=== PATIENT | male | born 1985 | race Caucasian/White ===

== ENCOUNTER 2017-07-20 09:57 | Emergency (ER) | payer OTHER ==
[~2017-07-20] VITALS: Wt 90.7 kg
[~2017-07-20 09:57] MED LIST: ALBUTEROL0.09 MG/A2 IH; COLACE100 MG PO; CORTISPORIN 1%-10 M1 OT; CYCLOBENZAPRINE10 MG PO; CYCLOBENZAPRINE5 M3 PO; Cleocin150 MG PO; HYDROCODONE BIT1 T11 PO; IBU800 MG PO; MEDROL DOSEPAK4 MG PO; MOTRIN800 MG PO; NAPROSYN500 MG PO; NORCO 325 MG-51 TAB PO; PARAFON FORTE500 MG PO; PREDNICOT20 MG PO; PREDNISONE50 MG PO; PROCTOSOL-HC2.51 TP; PROMETHAZINE25 MG RC; TRIMOX500 MG PO; VENTOLIN 02.5 MG/3 M INH; VICODIN 5/500 505 MG PO; ZITHROMAX Z PA250 MG PO
[2017-07-20 10:02] VITALS: BP 155/87
[2017-07-20] MEDS ORDERED: MEDROL DOSEPAK4 MG PO (10:47)
[2017-07-20] MEDS ORDERED: NORCO 5-325 TA1 EACH PO (10:50)
== END 2017-07-20 11:24 | disposition home or self-care (01) ==
LOC: ED 09:57
DX: M54.16 Radiculopathy, lumbar region (principal); M53.3 Sacrococcygeal disorders, not elsewhere classified; Z88.0 Allergy status to penicillin

== ENCOUNTER 2017-09-27 21:02 | Emergency (ER) | payer OTHER ==
[~2017-09-27] VITALS: Ht 182.8 cm; Wt 89.4 kg
[~2017-09-27 21:02] MED LIST changes: +NORCO 5-325 TA1 EACH PO
[2017-09-27 21:03] VITALS: BP 135/86
[2017-09-27] MEDS ORDERED: NAPROSYN500 MG PO (22:40)
== END 2017-09-27 23:28 | disposition home or self-care (01) ==
LOC: ED 21:02
DX: S90.111A Contusion of right great toe without damage to nail, initial encounter (principal); W18.40XA Slipping, tripping and stumbling without falling, unspecified, initial encounter; Y93.89 Activity, other specified; Y92.89 Other specified places as the place of occurrence of the external cause; Y99.8 Other external cause status; Z88.0 Allergy status to penicillin

== ENCOUNTER 2017-10-10 19:12 | Emergency (ER) | payer OTHER ==
[~2017-10-10] VITALS: Ht 182.8 cm; Wt 93.0 kg
[2017-10-10 19:21] VITALS: BP 121/71
[2017-10-10 20:15] LABS: BASO % 0.3 % (0.0-1.0); EOS # 0.1 10*3/uL (0.0-0.4); EOS % 1.2 % (1.0-4.0); HEMATOCRIT 40.8 % (42.0-52.0); HEMOGLOBIN 13.9 g/dl (14.0-18.0); LYMPH # 2.3 10*3/uL (1.3-4.4); LYMPH % 22.4 % (27.0-41.0); MEAN CELL VOLUME 91.7 fl (80.0-94.0); MEAN CORPUSCULAR HGB 31.2 pg (27.0-31.0); MEAN CORPUSCULAR HGB CONC 34.1 g/dl (33.0-37.0); MEAN PLATELET VOLUME 10.3 fl (9.6-12.3); MONO # 0.8 10*3/uL (0.1-1.0); MONO % 7.9 % (3.0-9.0); PLATELET COUNT AUTOMATED 311 10*3/uL (130-400); RED BLOOD COUNT 4.45 10*6/uL (4.50-5.90); RED CELL DISTRI WIDTH 12.7 % (0-14.5); WHITE BLOOD COUNT 10.3 10*3/uL (4.8-10.8)
[2017-10-10 20:27] LABS: URIC ACID 4.9 mg/dL (3.5-7.2)
[2017-10-10] MEDS ORDERED: ANAPROX DS550 MG PO (21:09)
== END 2017-10-10 21:18 | disposition home or self-care (01) ==
LOC: ED 19:12
PROVIDERS: Emergency Medicine Emergency Medical Services
DX: M72.2 Plantar fascial fibromatosis (principal); F17.200 Nicotine dependence, unspecified, uncomplicated; Z90.49 Acquired absence of other specified parts of digestive tract; Z87.01 Personal history of pneumonia (recurrent); Z88.0 Allergy status to penicillin

== ENCOUNTER → 2018-03-19 | Outpatient (CLI) | payer OTHER ==
[~2018-03-19] MED LIST changes: +ANAPROX DS550 MG PO
[2018-03-19 12:38] LABS: ALBUMIN 3.6 gm/dl (3.1-4.5); BUN 8 mg/dl (7-24); CHLORIDE 108 mmol/L (98-107); CHOLESTEROL 147 mg/dL (<200); CREATININE 0.76 mg/dL (0.70-1.30); POTASSIUM 3.8 mmol/L (3.5-5.1); SGOT/AST 13 IU/L (3-35); SGPT/ALT 21 U/L (12-78); SODIUM 139 mmol/L (136-145); TRIGLYCERIDES 67 mg/dl (<150); VLDL CHOLESTEROL 13 mg/dL (6-40)
[2018-03-19 12:46] LABS: ALKALINE PHOSPHATASE 96 U/L (45-117); HDL CHOLESTEROL 47 mg/dl (40-60); LDL CHOLESTEROL 87 mg/dL (9-159); TOTAL PROTEIN 6.8 gm/dL (6.4-8.2)
== END | disposition home or self-care (01) ==
LOC: LAB 11:52
DX: R53.82 Chronic fatigue, unspecified (principal); M54.5 Low back pain; H91.93 Unspecified hearing loss, bilateral; F17.200 Nicotine dependence, unspecified, uncomplicated; R79.89 Other specified abnormal findings of blood chemistry

== ENCOUNTER 2018-05-10 22:04 | Emergency (ER) | payer OTHER ==
[~2018-05-10] VITALS: Ht 185.4 cm; Wt 93.0 kg
[2018-05-10 22:05] VITALS: BP 128/80
[2018-05-10] MEDS ORDERED: MEDROL DOSEPAK4 MG PO (22:54)
== END 2018-05-10 23:10 ==
LOC: ED 22:04
DX: L25.9 Unspecified contact dermatitis, unspecified cause (principal); Z88.0 Allergy status to penicillin; Z90.49 Acquired absence of other specified parts of digestive tract

== ENCOUNTER 2018-08-09 17:38 | Emergency (ER) | payer OTHER ==
[~2018-08-09] VITALS: Ht 185.4 cm; Wt 101.6 kg
[2018-08-09 17:39] VITALS: BP 119/79
[2018-08-09 17:55] LABS: BASO % 0.3 % (0.0-1.0); EOS # 0.1 10*3/uL (0.0-0.4); EOS % 1.2 % (1.0-4.0); HEMATOCRIT 40.5 % (42.0-52.0); HEMOGLOBIN 13.9 g/dl (14.0-18.0); LYMPH # 1.5 10*3/uL (1.3-4.4); LYMPH % 20.4 % (27.0-41.0); MEAN CELL VOLUME 90.6 fl (80.0-94.0); MEAN CORPUSCULAR HGB 31.1 pg (27.0-31.0); MEAN CORPUSCULAR HGB CONC 34.3 g/dl (33.0-37.0); MEAN PLATELET VOLUME 10.7 fl (9.6-12.3); MONO # 0.5 10*3/uL (0.1-1.0); MONO % 6.6 % (3.0-9.0); NEUT # 5.2 10*3/uL (2.3-7.9); NEUT % 71.2 % (47.0-73.0); PLATELET COUNT AUTOMATED 309 10*3/uL (130-400); RED BLOOD COUNT 4.47 10*6/uL (4.50-5.90); RED CELL DISTRI WIDTH 12.7 % (0-14.5); WHITE BLOOD COUNT 7.3 10*3/uL (4.8-10.8)
[2018-08-09 18:12] LABS: ALBUMIN 3.8 gm/dl (3.1-4.5); ALKALINE PHOSPHATASE 79 U/L (45-117); BUN 9 mg/dl (7-24); CHLORIDE 108 mmol/L (98-107); CREATININE 0.77 mg/dL (0.70-1.30); LIPASE 120 U/L (73-393); POTASSIUM 4.2 mmol/L (3.5-5.1); SGOT/AST 10 IU/L (3-35); SGPT/ALT 18 U/L (12-78); SODIUM 138 mmol/L (136-145); TOTAL PROTEIN 7.1 gm/dL (6.4-8.2)
[2018-08-09 18:47] LABS: BILIRUBIN NEGATIVE (NEGATIVE); BLOOD NEGATIVE (NEGATIVE); CLARITY CLEAR (CLEAR); COLOR YELLOW (YELLOW); GLUCOSE NEGATIVE (NEGATIVE); KETONE NEGATIVE (NEGATIVE); LEUKO ESTERASE NEGATIVE (NEGATIVE); NITRITE NEGATIVE (NEGATIVE); PH 5.5 (5.0-9.0); SPECIFIC GRAVITY 1.025 (1.005-1.030); UROBILINOGEN 0.2 E.U./dl (0.2-1.0)
[2018-08-09 18:54] LABS: MUCOUS TRACE
[2018-08-09] MEDS ORDERED: NAPROSYN500 MG PO (19:10)
[2018-08-09] MEDS ORDERED: ZOFRAN4 MG PO (19:10)
== END 2018-08-09 20:07 ==
LOC: ED 17:38
PROVIDERS: Nurse Practitioner Family
DX: R10.9 Unspecified abdominal pain (principal); J45.909 Unspecified asthma, uncomplicated; Z88.0 Allergy status to penicillin; Z90.49 Acquired absence of other specified parts of digestive tract

== ENCOUNTER 2018-12-01 19:06 | Emergency (ER) | payer OTHER ==
[~2018-12-01] VITALS: Ht 185.4 cm; Wt 95.3 kg
[~2018-12-01 19:06] MED LIST changes: +ZOFRAN4 MG PO
[2018-12-01 19:11] VITALS: BP 133/82
[2018-12-01] MEDS ORDERED: IBU800 MG PO (19:58)
[2018-12-01] MEDS ORDERED: PREDNISONE20 M1 PO (19:58)
[2018-12-01] MEDS ORDERED: FLONASE ALLERG9.9 ML NAS (19:58)
== END 2018-12-01 20:06 | disposition home or self-care (01) ==
LOC: ED 19:06
DX: J06.9 Acute upper respiratory infection, unspecified (principal); M77.11 Lateral epicondylitis, right elbow; J45.909 Unspecified asthma, uncomplicated; Z87.891 Personal history of nicotine dependence; Z88.0 Allergy status to penicillin

== ENCOUNTER 2019-01-31 10:47 | Emergency (ER) | payer OTHER ==
[~2019-01-31] VITALS: Ht 185.4 cm; Wt 99.8 kg
[~2019-01-31 10:47] MED LIST changes: +FLONASE ALLERG9.9 ML NAS; +PREDNISONE20 M1 PO
[2019-01-31 10:49] VITALS: BP 138/89
[2019-01-31] MEDS ORDERED: Tobrex Ophth S2.5 ML OPH (11:44)
[2019-01-31] MEDS ORDERED: ACULAR 0.5%3 ML OPH (11:44)
[2019-05-10] MEDS ORDERED: AMOXICILLIN500 M2 PO (08:23)
[2019-05-10] MEDS ORDERED: Motrin,Rufen800 MG PO ×2 (08:23→08:25)
== END 2019-01-31 12:05 | disposition home or self-care (01) ==
LOC: ED 10:47
DX: H10.9 Unspecified conjunctivitis (principal); J45.909 Unspecified asthma, uncomplicated; F17.200 Nicotine dependence, unspecified, uncomplicated; Z88.0 Allergy status to penicillin; Z79.899 Other long term (current) drug therapy; Z90.49 Acquired absence of other specified parts of digestive tract

== ENCOUNTER 2020-05-28 04:25 | Emergency (ER) | payer BC ==
[~2020-05-28] VITALS: Ht 182.8 cm; Wt 95.3 kg
[~2020-05-28 04:25] MED LIST changes: +ACULAR 0.5%3 ML OPH; +AMOXICILLIN500 M2 PO; +Motrin,Rufen800 MG PO; +Tobrex Ophth S2.5 ML OPH
[2020-05-28 04:38] VITALS: BP 130/89
== END 2020-05-28 06:13 | disposition home or self-care (01) ==
LOC: ED 04:25
DX: S22.32XA Fracture of one rib, left side, initial encounter for closed fracture (principal); Z88.0 Allergy status to penicillin; W13.1XXA Fall from, out of or through bridge, initial encounter; Y93.89 Activity, other specified; Y92.89 Other specified places as the place of occurrence of the external cause; Y99.8 Other external cause status

== ENCOUNTER → 2020-11-07 | Outpatient (CLI) | payer BC | END | disposition home or self-care (01) | LOC: COVID19 13:42 | PROVIDERS: ATTEND Nurse Practitioner Primary Care | DX: U07.1 COVID-19 (principal) ==

== ENCOUNTER 2020-12-30 17:15 | Emergency (ER) | payer BC ==
[~2020-12-30] VITALS: Ht 182.8 cm; Wt 106.6 kg
[2020-12-30 17:33] VITALS: BP 131/82
[2020-12-30] MEDS ORDERED: NORVASC10 MG PO (17:46)
[2020-12-30] MEDS ORDERED: VITAMIN C500 M8 PO (17:47)
[2020-12-30] MEDS ORDERED: Motrin,Rufen800 MG PO (18:46)
== END 2020-12-30 19:03 | disposition home or self-care (01) ==
LOC: ED 17:15
DX: S93.402A Sprain of unspecified ligament of left ankle, initial encounter (principal); Z88.0 Allergy status to penicillin; Z79.899 Other long term (current) drug therapy; Z90.49 Acquired absence of other specified parts of digestive tract; X50.1XXA Overexertion from prolonged static or awkward postures, initial encounter; Y93.89 Activity, other specified; Y92.098 Other place in other non-institutional residence as the place of occurrence of the external cause; Y99.8 Other external cause status

== ENCOUNTER → 2021-12-23 | Outpatient (CLI) | payer BC ==
[~2021-12-23] MED LIST changes: +NORVASC10 MG PO; +VITAMIN C500 M8 PO
== END ==
LOC: RAD 11:29
PROVIDERS: ATTEND Nurse Practitioner Primary Care
DX: R07.89 Other chest pain (principal); R06.02 Shortness of breath

== ENCOUNTER 2022-02-27 13:23 | Emergency (ER) | payer BC ==
[2022-02-27 13:31] VITALS: BP 149/58
[2022-02-27] MEDS ORDERED: CYCLOBENZAPRINE5 M3 PO (15:18)
[2022-02-27] MEDS ORDERED: MEDROL DOSEPAK4 MG PO (15:18)
[2022-02-27] MEDS ORDERED: Motrin,Rufen800 MG PO (15:18)
== END 2022-02-27 16:04 | disposition home or self-care (01) ==
LOC: ED 13:23
DX: M54.50 Low back pain, unspecified (principal); Z88.0 Allergy status to penicillin; Z79.899 Other long term (current) drug therapy; Z90.49 Acquired absence of other specified parts of digestive tract; Z90.89 Acquired absence of other organs; Z98.890 Other specified postprocedural states

== ENCOUNTER 2022-12-15 23:52 | Emergency (ER) | payer BC ==
[~2022-12-15] VITALS: Ht 182.8 cm
[2022-12-16 00:07] VITALS: BP 139/87
[2022-12-16] MEDS ORDERED: TAMIFLU 75MG CA75 MG PO (02:14)
[2022-12-16] MEDS ORDERED: ZITHROMAX250 MG PO (02:14)
== END 2022-12-16 02:18 | disposition home or self-care (01) ==
LOC: ED 23:52
DX: J10.1 Influenza due to other identified influenza virus with other respiratory manifestations (principal); Z20.822 Contact with and (suspected) exposure to COVID-19; Z88.0 Allergy status to penicillin; Z90.49 Acquired absence of other specified parts of digestive tract; Z90.89 Acquired absence of other organs

== ENCOUNTER 2024-02-21 18:42 | Emergency (ER) | payer BC ==
[~2024-02-21] VITALS: Ht 182.8 cm; Wt 97.5 kg
[~2024-02-21 18:42] MED LIST changes: +TAMIFLU 75MG CA75 MG PO; +ZITHROMAX250 MG PO
[2024-02-21 19:01] VITALS: BP 123/89
[2024-02-21] MEDS ORDERED: Ondansetron Hydrochloride 4 MG TAB SL ONE (19:20)
[2024-02-21 19:38] LABS: BASO % 0.2 % (0.0-1.0); EOS # 0.1 10*3/uL (0.0-0.4); EOS % 0.8 % (1.0-4.0); HEMATOCRIT 46.3 % (42.0-52.0); LYMPH # 1.2 10*3/uL (1.3-4.4); LYMPH % 10.1 % (27.0-41.0); MEAN CELL VOLUME 90.4 fl (80.0-94.0); MEAN CORPUSCULAR HGB 30.3 pg (27.0-31.0); MEAN CORPUSCULAR HGB CONC 33.5 g/dl (33.0-37.0); MEAN PLATELET VOLUME 10.2 fl (9.6-12.3); MONO % 8.6 % (3.0-9.0); NEUT # 9.5 10*3/uL (2.3-7.9); PLATELET COUNT AUTOMATED 365 10*3/uL (130-400); RED BLOOD COUNT 5.12 10*6/uL (4.50-5.90); RED CELL DISTRI WIDTH 12.7 % (0-14.5); WHITE BLOOD COUNT 11.9 10*3/uL (4.8-10.8)
[2024-02-21 19:54] LABS: ALKALINE PHOSPHATASE 87 U/L (46-116); BUN 11 mg/dl (9-23); CHLORIDE 105 mmol/L (98-107); LIPASE 30 U/L (12-53); POTASSIUM 3.5 mmol/L (3.4-5.1); SGPT/ALT 13 U/L (5-49); TOTAL PROTEIN 7.4 gm/dL (6.0-8.0)
[2024-02-21] MEDS ORDERED: ONDANSETRON4 MG SL (21:32)
[2024-02-21] MEDS ORDERED: Ondansetron 4 MG 2 TAB ED PACK PO SCH (21:35)
== END 2024-02-21 22:03 | disposition home or self-care (01) ==
LOC: ED 18:42
PROVIDERS: Nurse Practitioner Family
DX: A08.4 Viral intestinal infection, unspecified (principal); Z20.822 Contact with and (suspected) exposure to COVID-19; R11.2 Nausea with vomiting, unspecified; R19.7 Diarrhea, unspecified; R07.89 Other chest pain; J45.909 Unspecified asthma, uncomplicated; Z88.0 Allergy status to penicillin; Z90.49 Acquired absence of other specified parts of digestive tract; Z98.890 Other specified postprocedural states